=== PATIENT | female | born 1970 | race Caucasian/White ===

== ENCOUNTER 2021-08-10 04:14 | Inpatient (IN) | payer OTHER ==
[2021-08-09 15:41] VITALS: BMI 25.2
[2021-08-10] MEDS ORDERED: BUPIVACAINE LIPOSOME/PF (EXPAREL) 266 MG/20 ML VIAL ONE (07:09)
[2021-08-10] MEDS ORDERED: BUPIVACAINE HCL/PF 0.5% (5MG/ML) 10 ML VIAL ONE (07:09)
[2021-08-10] MEDS ORDERED: MIDAZOLAM HCL 2 MG/2 ML SINGLE DOSE VIAL ONE ×3 (07:10→07:56)
[2021-08-10] MEDS ORDERED: PROPOFOL 20 ML ONE (07:56)
[2021-08-10] MEDS ORDERED: CEFAZOLIN 2 GM in DEXTROSE 5%-WATER - 100 ML IVPB ONE (08:14)
[2021-08-10] MEDS ORDERED: ceFAZolin SODIUM 1 GM VIAL IVPB ONE (08:35)
[2021-08-10] MEDS ORDERED: ceFAZolin SODIUM 1 GM VIAL ONE (08:35)
[2021-08-10] MEDS ORDERED: DEXAMETHASONE SOD PHOSPHATE 4 MG/1 ML VIAL ONE (08:43)
[2021-08-10] MEDS ORDERED: ROCURONIUM BROMIDE 50 MG/5 ML SYRINGE ONE (08:43)
[2021-08-10] MEDS ORDERED: HYDROmorphone HCl 2 MG/ML VIAL ONE (08:46)
[2021-08-10] MEDS ORDERED: ONDANSETRON 4 MG/2 ML VIAL IVPUSH PRN (10:24)
[2021-08-10] MEDS ORDERED: oxyCODONE HCL 5 MG TABLET PO PRN ×4 (10:25→10:26)
[2021-08-10] MEDS: KETOROLAC TROMETHAMINE 30 MG/1 ML VIAL IVPUSH SCH ×2 (10:30→15:49)
[2021-08-10] MEDS ORDERED: LACTATED RINGERS SOLUTION 1,000 ML IV SCH (10:30)
[2021-08-10] MEDS ORDERED: ACETAMINOPHEN INJECTION 100 ML IVPB ONE (10:57)
[2021-08-10] MEDS: ACETAMINOPHEN 1000 MG/100 ML BAG IVPB PRN (11:00)
[2021-08-10] MEDS ORDERED: CEFAZOLIN 2 GM in SODIUM CHLORIDE 100 ML IVPB SCH (18:00)
[2021-08-10] MEDS: CEFAZOLIN 2 GM in DEXTROSE 5%-WATER - 100 ML IVPB SCH (18:17)
[2021-08-10] MEDS: ACETAMINOPHEN 325 MG TABLET (FP) PO PRN (18:30)
[2021-08-10] MEDS: IBUPROFEN 800 MG/8 ML IJ IVPB PRN (21:30)
[2021-08-11] MEDS: ACETAMINOPHEN 1000 MG/100 ML BAG IVPB PRN (00:56)
[2021-08-11] MEDS: CEFAZOLIN 2 GM in DEXTROSE 5%-WATER - 100 ML IVPB SCH (02:03)
[2021-08-11] MEDS: IBUPROFEN 800 MG/8 ML IJ IVPB PRN (06:36)
[2021-08-11 07:33] LABS: BASO % 0.2 % (0-2.0); EOS % 0.3 % (0-4.5); HEMATOCRIT 29.8 % (32.4-45.2); HEMOGLOBIN 9.9 GM/dL (10.7-15.3); LYMPH % 16.2 % (8-40); MCH 30.1 pg (25.7-33.7); MCHC 33.1 g/dl (32.0-36.0); MEAN CELL VOLUME 90.9 fl (80-96); MEAN PLT VOLUME 9.7 fl (7.5-11.1); MONO % 10.1 % (3.8-10.2); NEUT % 73.2 % (42.8-82.8); PLATELET COUNT 204 10^3/uL (134-434); RBC 3.28 M/mm3 (3.60-5.2); RDW 12.2 % (11.6-15.6)
[2021-08-11] MEDS: ACETAMINOPHEN 325 MG TABLET (FP) PO PRN (16:06)
[2021-08-11 21:51] VITALS: TEMP 98.1
[2021-08-11] MEDS ORDERED: oxyCODONE HCL 5 MG TABLET PO PRN (21:56)
[2021-08-11] MEDS: oxyCODONE HCL 5 MG TABLET PO PRN (23:04)
[2021-08-12] MEDS: oxyCODONE HCL 5 MG TABLET PO PRN (09:11)
[2021-08-12 09:41] VITALS: BP 131/85; PULSE 84
== END 2021-08-12 11:35 | disposition home or self-care (01) | DRG 743 ==
LOC: J2C 04:14 → J3W 13:16
PROVIDERS: ADMIT Obstetrics & Gynecology; ATTEND Obstetrics & Gynecology
PROC: 0UB70ZZ Excision of Bilateral Fallopian Tubes, Open Approach (ICD-10-PCS; 2021-08-10)
PROC: 0UB20ZZ Excision of Bilateral Ovaries, Open Approach (ICD-10-PCS; 2021-08-10)
PROC: 0UT90ZL Resection of Uterus, Supracervical, Open Approach (ICD-10-PCS; principal; 2021-08-10 08:00)
DX: D25.9 Leiomyoma of uterus, unspecified (principal); R10.2 Pelvic and perineal pain; N80.0 Endometriosis of uterus
CPT/HCPCS: 36415; 85025; 86850; 86900; 86901; 94010; 94760; J0131